=== PATIENT | male | born 1950 | race Caucasian/White ===

== ENCOUNTER 2019-01-15 17:48 | Emergency (ER) | payer MEDICARE, MEDICAID ==
[~2019-01-15] VITALS: Ht 154.9 cm; Wt 62.0 kg
[2019-01-15 18:46] LABS: BASOPHILS % 1.4 % (0.0-2.0); EOSINOPHILS % 3.8 % (0.0-5.0); HEMATOCRIT. 41.6 % (42.0-52.0); HEMOGLOBIN. 14.3 g/dL (14.0-18.0); LYMPHOCYTES % 23.9 % (20.0-50.0); MEAN CORPUSCULAR HEMOGLOBIN 27.5 pg (28.0-32.0); MEAN PLATELET VOLUME 7.9 fl (7.4-10.4); MONOCYTES % 9.7 % (2.0-8.0); NEUTROPHILS % 61.2 % (40.0-76.0); PLATELET 262 x1000/uL (130-400)
[2019-01-15 18:49] LABS: CHLORIDE 105 mEq/L (98-107)
[2019-01-15 20:00] VITALS: BP 138/79
== END 2019-01-15 20:27 | disposition home or self-care (01) ==
LOC: ER 17:48
DX: F10.129 Alcohol abuse with intoxication, unspecified (principal); Y90.9 Presence of alcohol in blood, level not specified; R79.89 Other specified abnormal findings of blood chemistry; I45.10 Unspecified right bundle-branch block; R07.89 Other chest pain
CPT/HCPCS: 36415; 71045; 83880; 84484; 93005; 99284